=== PATIENT | male | born 1960 | race Caucasian/White ===

== ENCOUNTER → 2017-02-17 | Outpatient (CLI) | payer BC ==
[~2017-02-17] MED LIST: ASPIRIN LO-DOSE81 MG PO; FISH OIL 1,2001 EAC1 PO; PRINIVIL (ZESTRI5 MG PO; ZYRTEC10 MG PO
== END | disposition disaster alternative care site (69) ==
LOC: GRAD 08:52
DX: R31.29 Other microscopic hematuria (principal); N40.0 Benign prostatic hyperplasia without lower urinary tract symptoms

== ENCOUNTER → 2017-02-22 | Day surgery (SDC) | payer BC ==
[~2017-02-22] VITALS: Ht 177.8 cm; Wt 85.4 kg
== END ==
LOC: GEND 02-18 14:00 → GPOC 02-18 14:00 → GEND 08:32
PROC: 0DBH8ZX Excision of Cecum, Via Natural or Artificial Opening Endoscopic, Diagnostic (ICD-10-PCS; principal; 2017-02-22)
DX: Z12.11 Encounter for screening for malignant neoplasm of colon (principal); K63.89 Other specified diseases of intestine; K57.30 Diverticulosis of large intestine without perforation or abscess without bleeding; I10 Essential (primary) hypertension; M54.42 Lumbago with sciatica, left side; J30.9 Allergic rhinitis, unspecified; Z98.890 Other specified postprocedural states; Z79.82 Long term (current) use of aspirin; Z79.899 Other long term (current) drug therapy
CPT/HCPCS: J2001; J2405; J7030

== ENCOUNTER → 2017-04-28 | Outpatient (CLI) | payer OTHER, BC ==
--- NOTE | ~2017-04-28 | ENPV ---
Vascular Lower Extremities DVT Study Procedure Demographics Patient Name ROSEANNE WELSH Date of Study 04/28/2017 Patient Number [id number] Gender Male Date of 1960 Age 56 Visit Number [id number] Height 68 Weight 210 Number Referring Carol Duncan MD Interpreting Delio Antonio MD Physician Physician Physician Ordering Carol Duncan Assistant Maintenance Manager Physician Multiple Games Dealer Claudia Capps RDCS, RVT, RDMS, ROLLER INSPECTOR Conclusions Summary 1) No evidence of deep or superficial thrombus in the left and proximal right lower extremities. 2) In the mid anterolateral ramirez there is a 3.6 x 1.0 cm. avascular hypoechoic structure consistent with a hematoma from recent trauma. Procedure Type of Study: Veins:Lower Extremities DVT Study, Lower Extremity Left. Appropriate Use Criteria:9 Patient Status:JACKIE. Study Location:Vascular Lab. Technical Quality:Good visualization. - Preliminary reported to:Dr. Medina's RN. Velocities are measured in cm/s ; Diameters are measured in cm Right Lower Extremities DVT Study Measurements Right 2D and Doppler Measurements + + + + +------+------+ + !Location !Visualized!Compressibility!Thrombosis!Signal!Reflux!Reflux ! ! ! ! ! ! ! !(sec) ! + + + + +------+------+ + !Common !Yes !Yes !None !Phasic! ! ! !Femoral ! ! ! ! ! ! ! + + + + +------+------+ + Left Lower Extremities DVT Study Measurements Left 2D and Doppler Measurements + + + + +------+------+ + !Location !Visualized!Compressibility!Thrombosis!Signal!Reflux!Reflux ! ! ! ! ! ! ! !(sec) ! + + + + +------+------+ + !GSV Thigh !Yes !Yes !None !Phasic! ! ! + + + + +------+------+ + !Common !Yes !Yes !None !Phasic! ! ! !Femoral ! ! ! ! ! ! ! + + + + +------+------+ + !Prox !Yes !Yes !None !Phasic! ! ! !Femoral ! ! ! ! ! ! ! + + + + +------+------+ + !Mid Femoral!Yes !Yes !None !Phasic! ! ! + + + + +------+------+ + !Dist !Yes !Yes !None !Phasic! ! ! !Femoral ! ! ! ! ! ! ! + + + + +------+------+ + !Popliteal !Yes !Yes !None !Phasic! ! ! + + + + +------+------+ + !Gastroc !Yes !Yes !None ! ! ! ! + + + + +------+------+ + !PTV !Yes !Yes !None ! ! ! ! + + + + +------+------+ + !Peroneal !Yes !Yes !None ! ! ! ! + + + + +------+------+ + Impressions Right Impression Common femoral vein imaged for comparison and found to be normal. Left Impression No evidence of superficial or deep venous thrombus. In the mid anterolateral ramirez there is a 3.6 x 1.0 cm. avascular hypoechoic structure consistent with a hematoma from recent trauma. Signature dtt: LATESHA RICHARDSON dtjuana: 04/28/17 1319 Physician Self Edit
== END | disposition disaster alternative care site (69) ==
LOC: GCAR 12:30
DX: R60.0 Localized edema (principal); W17.1XXA Fall into storm drain or manhole, initial encounter